=== PATIENT | male | born 1950 | race Caucasian/White ===

== ENCOUNTER 2022-03-14 16:11 | Emergency (ER) | payer OTHER, MEDICARE ==
[2022-03-14 16:43] VITALS: BP 130/84; PULSE 82; TEMP 98.2; BMI 30.4
[2022-03-14] MEDS ORDERED: ACETAMINOPHEN 325 MG TABLET (FP) PO ONE (17:55)
[2022-03-14] MEDS ORDERED: ACETAMINOPHEN 325 MG TABLET (FP) ONE (17:58)
[2022-03-14] MEDS ORDERED: CYCLOBENZAPRINE HCL 10 MG TABLET (FP) PO ONE (19:24)
[2022-03-14] MEDS ORDERED: CYCLOBENZAPRINE HCL 10 MG TABLET (FP) ONE (19:31)
== END 2022-03-14 20:18 | disposition home or self-care (01) ==
LOC: JERFT 16:11
DX: M54.50 Low back pain, unspecified (principal)
CPT/HCPCS: 72100-TC-FY; 99283-25